=== PATIENT | male | born 1965 | race Two or more races ===

== ENCOUNTER 2022-02-03 12:36 | Outpatient (CLI) | payer OTHER | END 2022-02-03 12:47 | disposition home or self-care (01) | LOC: SONOGRAMA 12:36 | DX: N52.9 Male erectile dysfunction, unspecified (principal); N40.1 Benign prostatic hyperplasia with lower urinary tract symptoms ==

== ENCOUNTER 2023-12-01 09:15 | Inpatient (IN) | payer OTHER ==
[~2023-12-01] VITALS: Ht 170.2 cm; Wt 97.5 kg
[~2023-12-01 09:15] MED LIST: TADALAFIL5 MG PO
[2023-12-01 10:52] LABS: HEMATOCRIT 40.1 % (39.0-48.0); HEMOGLOBIN 13.7 g/dL (13-16.00); MEAN CELL VOLUME 83.8 fL (80.0-100.00); MEAN CORPUSCULAR HEMOGLOBIN 28.7 pg (27.00-32.0); MEAN CORPUSCULAR HGB CONC 34.3 g/dl (32.0-36.0); PH,URINE 5.5 (5.0-8.0); PLATELET COUNT 149 K/uL (150-450); RED BLOOD COUNT 4.78 M/uL (4.00-6.00); RED CELL DISTRIBUTION WIDTH 14.6 % (11.5-14.5); URINE APPEARANCE Clear; URINE BILIRRUBIN Negative (NEGATIVE); URINE BLOOD Negative; URINE COLOR Yellow; URINE GLUCOSE Negative (NEGATIVE); URINE KETONE Negative (NEGATIVE); URINE LEUKOCYTE Negative; URINE NITRATE Negative; URINE PROTEIN Negative (NEGATIVE); URINE UROBILINOGEN 0.2 E.U./dl
[2023-12-01 11:30] LABS: INR 0.97; PARTIAL THROMBOPLASTIN TIME 29.7 SECONDS (22.0-34.0); PROTHROMBIN TIME 10.6 SECONDS (9.0-11.5)
[2023-12-01 11:37] LABS: CALCIUM 8.8 mg/dL (8.5-10.1); CREATININE SERUM 0.77 mg/dL (0.70-1.30); GFR 104.13; POTASSIUM 4.06 mEq/L (3.5-5.1)
[2023-12-01 11:40] LABS: URINE BACTERIA 2.5 uL (0.0-1933); URINE CAST 0.15 uL (0.0-1.40); URINE EPITHELIAL CELLS 1.2 uL (0.0-38.8); URINE RBC 1.2 uL (0.0-20.8); URINE WBC 0.3 uL (0.0-23.2)
[2023-12-06] MEDS ORDERED: CEFAZOLIN SODIUM 1,000 MG VIAL ONE ×2 (07:53→15:13)
[2023-12-06] MEDS ORDERED: ENOXAPARIN SODIUM 40 MG/0.4 ML SYRINGE SUBCUTANEO ONE (07:53)
[2023-12-06] MEDS ORDERED: BUPIVACAINE HCL/MPF 0.5% 30ML VIAL ONE (09:09)
[2023-12-06] MEDS ORDERED: HEMOSTATIC MATRIX 1 KIT KIT TOP ONE (09:42)
[2023-12-06] MEDS ORDERED: SURGIFLO APPLICATOR 1 EACH APPL TOP ONE ×2 (09:42→09:43)
[2023-12-06] MEDS ORDERED: SUGAMMADEX SODIUM 200 MG/2 ML VIAL IV ONE (13:26)
[2023-12-06] MEDS ORDERED: OxyCODONE HCL/APAP UD (PERCOCET) PO PRN (13:45)
[2023-12-06] MEDS ORDERED: RINGERS SOLUTION,LACTATED 1,000 ML IV SCH (13:45)
[2023-12-06] MEDS ORDERED: ONDANSETRON HCL 2 MG/ML VIAL IV PRN (13:45)
[2023-12-06] MEDS ORDERED: KETOROLAC TROMETHAMINE 30 MG VIAL ONE (14:13)
[2023-12-06] MEDS ORDERED: KETOROLAC TROMETHAMINE 30 MG VIAL IV ONE (15:00)
[2023-12-06] MEDS ORDERED: GABAPENTIN 300 MG CAPSULE PO SCH (17:00)
[2023-12-06] MEDS ORDERED: POLYETHYLENE GLYCOL 3350 17 GM BLIST.PACK PO SCH (17:00)
[2023-12-06 17:50] VITALS: BP 160/72; O2SAT 96
[2023-12-06] MEDS ORDERED: KETOROLAC TROMETHAMINE 30 MG VIAL IM SCH (18:00)
[2023-12-06] MEDS ORDERED: CEFAZOLIN SODIUM 1,000 MG VIAL IV SCH (18:00)
[2023-12-06] MEDS ORDERED: FAMOTIDINE/PF 20 MG/2 ML VIAL IV SCH (21:00)
[2023-12-07 02:09] VITALS: BP 124/62; O2SAT 96
[2023-12-07 06:51] LABS: HEMATOCRIT 32.2 % (39.0-48.0); HEMOGLOBIN 11.3 g/dL (13-16.00); MEAN CELL VOLUME 83.7 fL (80.0-100.00); MEAN CORPUSCULAR HEMOGLOBIN 29.2 pg (27.00-32.0); MEAN CORPUSCULAR HGB CONC 34.9 g/dl (32.0-36.0); RED BLOOD COUNT 3.85 M/uL (4.00-6.00)
[2023-12-07 06:55] LABS: PLATELET COUNT 123 K/uL (150-450)
[2023-12-07 08:21] LABS: CALCIUM 7.7 mg/dL (8.5-10.1); CREATININE SERUM 0.83 mg/dL (0.70-1.30); GFR 95.49; PHOSPHOROUS 3.2 mg/dL (2.5-4.9); POTASSIUM 3.62 mEq/L (3.5-5.1)
[2023-12-07 08:56] VITALS: BP 145/77; O2SAT 98
[2023-12-07] MEDS ORDERED: ENOXAPARIN SODIUM 40 MG/0.4 ML SYRINGE SUBCUTANEO SCH (09:00)
== END 2023-12-07 12:36 | disposition home or self-care (01) | DRG 708 ==
LOC: O/R 12-06 06:40 → SURH 12-06 09:15
PROVIDERS: ADMIT Urology; ATTEND Urology
PROC: 07BC4ZZ Excision of Pelvis Lymphatic, Percutaneous Endoscopic Approach (ICD-10-PCS; 2023-12-06)
PROC: 8E0W4CZ Robotic Assisted Procedure of Trunk Region, Percutaneous Endoscopic Approach (ICD-10-PCS; 2023-12-06)
PROC: 0VT04ZZ Resection of Prostate, Percutaneous Endoscopic Approach (ICD-10-PCS; principal; 2023-12-06 13:15)
DX: C61 Malignant neoplasm of prostate (principal); Z20.822 Contact with and (suspected) exposure to COVID-19
CPT/HCPCS: 55866; 38571; S2900